=== PATIENT | female | born 1975 | race Two or more races ===

== ENCOUNTER 2020-11-11 13:33 | Emergency (ER) | payer OTHER ==
[~2020-11-11] VITALS: Ht 165.1 cm; Wt 105.2 kg
== END 2020-11-11 16:02 | disposition home or self-care (01) ==
LOC: ER 13:33
DX: H11.32 Conjunctival hemorrhage, left eye (principal)

== ENCOUNTER 2020-12-21 06:37 | Outpatient (CLI) | payer OTHER | END 2020-12-21 06:38 | disposition home or self-care (01) | LOC: LAB 06:37 | PROVIDERS: ATTEND Internal Medicine | DX: E03.8 Other specified hypothyroidism (principal); E55.9 Vitamin D deficiency, unspecified; Z13.1 Encounter for screening for diabetes mellitus; I10 Essential (primary) hypertension; E78.49 Other hyperlipidemia; D61.3 Idiopathic aplastic anemia ==

== ENCOUNTER → 2021-05-03 10:02 | Outpatient (CLI) | payer OTHER | END | disposition home or self-care (01) | LOC: LAB 10:02 | PROVIDERS: ATTEND Internal Medicine Rheumatology | DX: M34.9 Systemic sclerosis, unspecified (principal) ==

== ENCOUNTER 2022-02-17 08:15 | Outpatient (CLI) | payer OTHER | END 2022-02-17 08:27 | disposition home or self-care (01) | LOC: SONOGRAMA 08:15 | DX: K76.0 Fatty (change of) liver, not elsewhere classified (principal) ==

== ENCOUNTER 2022-02-17 09:36 | Outpatient (CLI) | payer OTHER | END 2022-02-17 09:37 | disposition home or self-care (01) | LOC: LAB 09:36 | PROVIDERS: ATTEND Surgery | DX: D46.4 Refractory anemia, unspecified (principal); E11.9 Type 2 diabetes mellitus without complications; E03.9 Hypothyroidism, unspecified; E54 Ascorbic acid deficiency; E55.9 Vitamin D deficiency, unspecified; D51.9 Vitamin B12 deficiency anemia, unspecified; B96.81 Helicobacter pylori [H. pylori] as the cause of diseases classified elsewhere ==

== ENCOUNTER 2022-03-23 13:42 | Emergency (ER) | payer OTHER ==
[~2022-03-23] VITALS: Ht 165.1 cm; Wt 99.8 kg
== END 2022-03-23 20:12 | disposition home or self-care (01) ==
LOC: ER 13:42
DX: U07.1 COVID-19 (principal)

== ENCOUNTER 2022-04-05 10:03 | Outpatient (CLI) | payer OTHER | END 2022-04-05 10:04 | disposition home or self-care (01) | LOC: LAB 10:03 | PROVIDERS: ATTEND Obstetrics & Gynecology | DX: N39.0 Urinary tract infection, site not specified (principal); R22.1 Localized swelling, mass and lump, neck; D50.9 Iron deficiency anemia, unspecified; E03.9 Hypothyroidism, unspecified ==

== ENCOUNTER → 2022-04-12 | Outpatient (CLI) | payer OTHER | END | disposition home or self-care (01) | LOC: MAMO-SONO 10:08 | PROVIDERS: ATTEND Obstetrics & Gynecology | DX: N63.21 Unspecified lump in the left breast, upper outer quadrant (principal); N63.12 Unspecified lump in the right breast, upper inner quadrant ==

== ENCOUNTER 2022-05-13 11:46 | Outpatient (CLI) | payer OTHER | END 2022-05-13 11:53 | disposition home or self-care (01) | LOC: MAMO-SONO 11:46 | PROVIDERS: ATTEND Obstetrics & Gynecology | DX: N63.21 Unspecified lump in the left breast, upper outer quadrant (principal); N63.12 Unspecified lump in the right breast, upper inner quadrant ==

== ENCOUNTER 2022-07-05 16:42 | Outpatient (CLI) | payer OTHER | END 2022-07-05 16:45 | disposition home or self-care (01) | LOC: LAB 16:42 | DX: J11.1 Influenza due to unidentified influenza virus with other respiratory manifestations (principal); R50.9 Fever, unspecified; U07.1 COVID-19 ==

== ENCOUNTER 2022-08-08 23:14 | Emergency (ER) | payer OTHER ==
[~2022-08-08] VITALS: Ht 165.1 cm; Wt 96.2 kg
[2022-08-25] MEDS ORDERED: VOLTAREN ARTHRI20 GM TOP (15:41)
== END 2022-08-09 02:40 | disposition home or self-care (01) ==
LOC: ER 23:14
DX: S99.811A Other specified injuries of right ankle, initial encounter (principal); W18.30XA Fall on same level, unspecified, initial encounter; Y93.9 Activity, unspecified; Y92.9 Unspecified place or not applicable; Y99.9 Unspecified external cause status

== ENCOUNTER 2022-09-16 15:19 | Outpatient (CLI) | payer OTHER ==
[~2022-09-16 15:19] MED LIST: VOLTAREN ARTHRI20 GM TOP
== END 2022-09-16 15:23 | disposition home or self-care (01) ==
LOC: RAD 15:19
PROVIDERS: ATTEND Surgery
DX: G47.33 Obstructive sleep apnea (adult) (pediatric) (principal)

== ENCOUNTER 2022-09-16 16:10 | Outpatient (CLI) | payer OTHER | END 2022-09-16 16:52 | disposition home or self-care (01) | LOC: LAB 16:10 | PROVIDERS: ATTEND Surgery | DX: R09.2 Respiratory arrest (principal); D46.4 Refractory anemia, unspecified ==

== ENCOUNTER 2023-01-12 16:40 | Outpatient (CLI) | payer OTHER ==
[2023-01-12 17:38] LABS: T4 FREE 1.07 NG/ML (0.76-1.46); TSH 2.55 uIU/mL (0.358-3.74)
== END 2023-01-12 16:44 | disposition home or self-care (01) ==
LOC: LAB 16:40
PROVIDERS: ATTEND Obstetrics & Gynecology
DX: E03.9 Hypothyroidism, unspecified (principal)

== ENCOUNTER → 2023-02-01 08:17 | Outpatient (CLI) | payer OTHER ==
[2023-02-01 08:57] LABS: HEMATOCRIT 37.6 % (36.0-45.00); HEMOGLOBIN 12.4 g/dL (12.0-15.00); MEAN CELL VOLUME 83.8 fL (80.00-100.00); MEAN CORPUSCULAR HEMOGLOBIN 27.7 pg (27.00-32.0); MEAN CORPUSCULAR HGB CONC 33.1 g/dl (32.0-36.0); PLATELET COUNT 234 K/uL (150-450); RED BLOOD COUNT 4.48 M/uL (4.00-6.00); RED CELL DISTRIBUTION WIDTH 15.6 % (11.5-14.5)
[2023-02-01 10:01] LABS: ALBUMIN 3.5 gm/dL (3.4-5.0); BILIRUBIN TOTAL 0.63 mg/dL (0.3-1.2); CHOL HDL RATIO 3.1 (0-5.0); CREATININE SERUM 0.71 mg/dL (0.55-1.02); FREE TRIODOTIRONINE 2.07 pg/ml (2.18-3.98); GFR 88.62; GLOBULINA 3.7 G/DL (2.4-3.5); POTASSIUM 4.26 mEq/L (3.5-5.1); T4 FREE 1.12 NG/ML (0.76-1.46); TOTAL PROTEIN 7.2 gm/dL (6.4-8.2); TSH 3.2 uIU/mL (0.358-3.74)
[2023-02-01 12:50] LABS: FOLIC ACID 4.05 ng/ml (4.78-20); VITAMIN D3 25 HYDROXY 35.18 ng/ml (30-120)
== END | disposition home or self-care (01) ==
LOC: LAB 08:17
DX: D46.4 Refractory anemia, unspecified (principal); E11.9 Type 2 diabetes mellitus without complications; E03.9 Hypothyroidism, unspecified; E54 Ascorbic acid deficiency; E55.9 Vitamin D deficiency, unspecified; D51.9 Vitamin B12 deficiency anemia, unspecified; R19.5 Other fecal abnormalities; Z11.59 Encounter for screening for other viral diseases

== ENCOUNTER 2023-11-11 07:49 | Outpatient (CLI) | payer OTHER ==
[2023-11-11 08:53] LABS: HEMATOCRIT 36.7 % (36.0-45.00); HEMOGLOBIN 12.2 g/dL (12.0-15.00); MEAN CELL VOLUME 87.1 fL (80.00-100.00); MEAN CORPUSCULAR HGB CONC 33.3 g/dl (32.0-36.0); PLATELET COUNT 250 K/uL (150-450); RED BLOOD COUNT 4.22 M/uL (4.00-6.00); RED CELL DISTRIBUTION WIDTH 13.6 % (11.5-14.5)
[2023-11-11 09:24] LABS: ALBUMIN 3.7 gm/dL (3.4-5.0); BILIRUBIN TOTAL 0.62 mg/dL (0.3-1.2); CHOL HDL RATIO 2.4 (0-5.0); CREATININE SERUM 0.55 mg/dL (0.55-1.02); GFR 118.99; GLOBULINA 3.4 G/DL (2.4-3.5); POTASSIUM 4.35 mEq/L (3.5-5.1); T4 TOTAL 7.53 UG/DL (4.8-13.9); TOTAL PROTEIN 7.1 gm/dL (6.4-8.2); TSH 2.44 uIU/mL (0.358-3.74)
[2023-11-13 10:42] LABS: FOLIC ACID 6.25 ng/ml (4.78-20); T3 TOTAL 0.88 ng/ml (0.846-2.02); VITAMIN D3 25 HYDROXY 28.91 ng/ml (30-120)
== END 2023-11-11 10:18 | disposition home or self-care (01) ==
LOC: LAB 07:49
PROVIDERS: ATTEND Surgery
DX: D46.4 Refractory anemia, unspecified (principal); E11.9 Type 2 diabetes mellitus without complications; E03.9 Hypothyroidism, unspecified; E54 Ascorbic acid deficiency; E55.9 Vitamin D deficiency, unspecified; D51.9 Vitamin B12 deficiency anemia, unspecified; R51.9 Headache, unspecified; Z11.59 Encounter for screening for other viral diseases

== ENCOUNTER 2024-02-10 07:04 | Outpatient (CLI) | payer OTHER ==
[2024-02-10 08:59] LABS: HEMATOCRIT 37.3 % (36.0-45.00); HEMOGLOBIN 12.5 g/dL (12.0-15.00); MEAN CELL VOLUME 86.2 fL (80.00-100.00); MEAN CORPUSCULAR HEMOGLOBIN 28.9 pg (27.00-32.0); MEAN CORPUSCULAR HGB CONC 33.6 g/dl (32.0-36.0); PLATELET COUNT 286 K/uL (150-450); RED BLOOD COUNT 4.32 M/uL (4.00-6.00); RED CELL DISTRIBUTION WIDTH 13.5 % (11.5-14.5)
[2024-02-10 09:08] LABS: PH,URINE 5.5 (5.0-8.0); URINE APPEARANCE Clear; URINE BILIRRUBIN Negative (NEGATIVE); URINE COLOR Yellow; URINE GLUCOSE Negative (NEGATIVE); URINE KETONE Negative (NEGATIVE); URINE LEUKOCYTE Small; URINE NITRATE Negative; URINE PROTEIN Negative (NEGATIVE); URINE UROBILINOGEN 0.2 E.U./dl
[2024-02-10 09:13] LABS: URINE EPITHELIAL CELLS 35.5 uL (0.0-38.8); URINE RBC 14.9 uL (0.0-20.8); URINE WBC 122.7 uL (0.0-23.2)
[2024-02-10 09:34] LABS: ALBUMIN 3.7 gm/dL (3.4-5.0); BILIRUBIN TOTAL 0.55 mg/dL (0.3-1.2); CALCIUM 8.9 mg/dL (8.5-10.1); CREATININE SERUM 0.6 mg/dL (0.55-1.02); GFR 107.16; GLOBULINA 3.3 G/DL (2.4-3.5); POTASSIUM 4.8 mEq/L (3.5-5.1); T4 FREE 0.99 NG/ML (0.76-1.46); TSH 3.68 uIU/mL (0.358-3.74)
[2024-02-10 09:38] LABS: URINE BACTERIA > 9821.5 uL (0.0-1933); URINE BLOOD TRACE
== END 2024-02-10 07:05 | disposition home or self-care (01) ==
LOC: LAB 07:04
PROVIDERS: ATTEND Obstetrics & Gynecology
DX: N39.0 Urinary tract infection, site not specified (principal); D50.9 Iron deficiency anemia, unspecified; E55.9 Vitamin D deficiency, unspecified; E03.9 Hypothyroidism, unspecified

== ENCOUNTER → 2024-10-29 10:05 | Outpatient (CLI) | payer OTHER ==
[2024-10-29 10:47] LABS: BASO % 0.9 % (0.1-1.2); EOS # 0.15 (0.04-0.54); EOS % 1.4 % (0.7-7.0); LYMPH # 1.76 (1.18-3.74); LYMPH % 16.8 % (19.3-53.1); MEAN PLATELET VOLUME 11.00 fl (9.4-12.4); MONO # 0.76 (0.24-0.82); MONO % 7.2 % (4.7-12.5); NEUT # 7.69 (1.56-6.13); NEUT % 73.3 % (34.0-71.1); RED CELL DISTRIBUTION WIDTH 12.5 % (11.6-14.4)
[2024-10-29 11:47] LABS: MYCOPLASMA PNEUMONIAE IGM NON REACTIVE (NO REACTIVE)
[2024-10-29 14:08] LABS: COVID-19 AG NEGATIVE (NEGATIVE)
== END | disposition home or self-care (01) ==
LOC: LAB 10:05
DX: R50.9 Fever, unspecified (principal); J11.1 Influenza due to unidentified influenza virus with other respiratory manifestations; U07.1 COVID-19

== ENCOUNTER → 2025-01-04 07:52 | Outpatient (CLI) | payer OTHER ==
[2025-01-04 08:35] LABS: BASO % 1.6 % (0.1-1.2); EOS # 0.14 (0.04-0.54); EOS % 2.6 % (0.7-7.0); LYMPH # 1.37 (1.18-3.74); LYMPH % 25.0 % (19.3-53.1); MEAN PLATELET VOLUME 10.70 fl (9.4-12.4); MONO # 0.48 (0.24-0.82); MONO % 8.8 % (4.7-12.5); NEUT # 3.38 (1.56-6.13); NEUT % 61.8 % (34.0-71.1); RED CELL DISTRIBUTION WIDTH 12.6 % (11.6-14.4)
[2025-01-04 08:47] LABS: ALT/SGPT 37.0 U/L (12-78); AST/SGOT 21.0 U/L (15-37); BILIRUBIN TOTAL 0.67 mg/dL (0.3-1.2); BUN CREA RATIO 36.0 (7.0-25.0); CHOL HDL RATIO 1.9 (0-5.0); CREATININE SERUM 0.5 mg/dL (0.55-1.02); GFR 131.68; GLOBULINA 3.3 G/DL (2.4-3.5); GLUCOSE FASTING 92.0 mg/dL (65-100); HDL 74.0 mg/dl (40-60); LDL 58.0 mg/dl (0-130); OSMOLALITY SERUM 285.0 MOSM/KG (275-295); VLDL 6.0 (0-39)
[2025-01-04 08:56] LABS: FE 122.0 ug/dl (50-170); T4 TOTAL 7.24 UG/DL (4.8-13.9); TSH 2.31 uIU/mL (0.358-3.74)
[2025-01-06 13:48] LABS: FOLIC ACID 12.62 ng/ml (4.78-20); T3 TOTAL 0.715 ng/ml (0.846-2.02); VITAMIN D3 25 HYDROXY 31.4 ng/ml (30-120)
== END | disposition home or self-care (01) ==
LOC: LAB 07:52
DX: D46.4 Refractory anemia, unspecified (principal); E11.9 Type 2 diabetes mellitus without complications; E03.9 Hypothyroidism, unspecified; E54 Ascorbic acid deficiency; E55.9 Vitamin D deficiency, unspecified; D51.9 Vitamin B12 deficiency anemia, unspecified; R19.5 Other fecal abnormalities; Z11.59 Encounter for screening for other viral diseases